=== PATIENT | male | born 1960 | race Caucasian/White ===

== ENCOUNTER 2017-02-03 20:47 | Inpatient (IN) | payer OTHER ==
[~2017-02-03] VITALS: Ht 182.9 cm; Wt 90.8 kg
--- NOTE | ~2017-02-03 | DS ---
PATIENT'S NAME: GALE JAQUEZ [facility] AGE: 56 Y [address] ROOM: [address] [address] LOCATION: [facility] [place] ADMIT DATE: 02/03/2017 Discharge Summary DISCHARGE DATE: 02/05/2017 FAMILY PHYSICIAN: Physician, Unknown ATTENDING PHYSICIAN: Andrea Higgins FINAL/DISCHARGE DIAGNOSES: 1. Right upper quadrant pain. 2. Elevated bilirubin. 3. Accelerated hypertension. 4. Chronic pain, right leg. 5. Microscopic hematuria. HISTORY OF PRESENT ILLNESS: For details of admission, please see the history and physical dictated by Dr. Andrea Higgins. In short, the patient had presented to [facility] with complaints of pain in his right upper quadrant. At that time, he was noted to have an elevated bilirubin, and ultrasound at the outlying facility had shown some question of gallbladder wall thickening. The patient was transferred to [facility] for higher level of care. LABORATORY DATA: On 2nd hospital day, sodium 141, potassium 4, chloride 109, CO2 of 25, BUN 20, creatinine 0.8, total bilirubin 0.7, AST 113, ALT 201, amylase 57, and lipase 189. On the date of discharge, sodium 141, potassium 3.3, BUN 16, creatinine 0.8, total bilirubin 1.2, AST 39, ALT 146, alkaline phosphatase 68, magnesium is 2. On January 05, white blood cell count 10.1, hemoglobin 15.8, hematocrit 45.6, and platelet count 262,000 with a normal differential. Urinalysis on presentation showed 25 leukocytes, 30 protein, and he had 0-2 red blood cells. MICROBIOLOGY DATA: Blood cultures obtained on admission were negative. RADIOLOGY STUDIES: MRCP of the abdomen done on February 04 shows that the common bile duct was not dilated. It was measured at 4 mm. There were no filling defects. There was normal of the common hepatic duct. There was no gallbladder wall thickening. There were stones and sludge within the gallbladder, but no thickening or evidence of inflammation. HOSPITAL COURSE: The patient was from [place] with a presumed diagnosis of acute cholecystitis. He was placed MICU and given IV Levaquin and Flagyl. He was also given aggressive IV hydration. He was seen in evaluation by Dr. Sanchez from the surgery standpoint. Due to the symptoms and the elevated bilirubin, an MRCP was obtained, the results of which were given. After that, returned without any evidence of gallbladder wall thickening or common bile duct stone. It was felt that the patient could be PATIENT'S NAME: GALE JAQUEZ [facility] AGE: 56 Y [address] ROOM: [place] [address] LOCATION: [facility] [place] ADMIT DATE: 02/03/2017 Discharge Summary DISCHARGE DATE: 02/05/2017 FAMILY PHYSICIAN: Physician, Unknown ATTENDING PHYSICIAN: Andrea Higgins started on a diet. He was started on clear liquids and then advanced to a regular diet. On the morning of discharge, he was able to eat a Pashto toast and morales without any nausea, vomiting, or increase in his pain symptoms. It was felt because his lab values were improved and that he was able to eat without worsening symptomatology, but this was probably not acute cholecystitis and that he did not need any surgical intervention. On admission, his blood pressures were elevated. He did receive IV hydralazine for elevated blood pressures. His blood pressures did improve into the 130s to 150s range prior to discharge. The patient does have a history of chronic right leg pain. He currently works with Dr. Ivan Ojeda in [place]. He is on a pain contract for that and states that he has adequate pain medication at home. The patient is discharged to home. He is going on a low-fat diet. See Dr. Ivan Ojeda in 3 to 5 days. DISCHARGE MEDICATIONS: He will be discharged on Cipro 500 mg twice daily for 7 days. Resume the following chronic medications: 1. Neurontin 300 mg 3 times daily. 2. MS Contin 15 mg twice daily. 3. Zofran 4 mg every 4 hours as needed for nausea and vomiting. 4. Colace 100 mg daily as needed. 5. Oxycodone 5 mg every 4 hours as needed for pain. PROGNOSIS: Overall prognosis at discharge is good. I did speak at length with Dr. Ojeda regarding this discharge. JOHANNE WEINSTEIN MD LAW/modl /[id number] d: 02/05/17 2236 t: 02/06/17 1509, DISCHARGE SUMMARY
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
[~2017-02-03 20:47] MED LIST: AMBIEN5 MG PO; ASPIRIN BUFFER325 MG PO; CELEBREX200 MG PO; COLACE100 MG PO; LOVENOX 4040 MG/0.4 SUB-Q; MIRALAX17 GM PO; NEURONTIN300 MG PO; PRILOSEC20 MG PO; ROXICODONE 5MG (5 MG PO; SENOKOT8.6 MG PO; TYLENOL EXTRA500 MG PO; VALIUM2 MG PO
[2017-02-03] MEDS ORDERED: MS CONTIN15 MG PO (21:53)
[2017-02-03] MEDS ORDERED: ZOFRAN ODT4 MG PO (21:54)
[2017-02-04 05:36] LABS: BASOPHIL % 0.2 %; EOSINOPHIL # 0.1 K/uL (0.0-0.5); EOSINOPHIL % 0.9 %; HEMATOCRIT 45.6 % (37.0-53.0); HEMOGLOBIN 15.8 g/dL (12.0-17.0); IMMATURE GRANULOCYTE % 0.2 %; LYMPHOCYTE # 1.5 K/uL (0.8-4.0); LYMPHOCYTE % 15.1 %; MCH 30.5 pg (27.0-34.0); MCHC 34.6 gm/dL (32.0-36.5); MONOCYTE # 0.8 K/uL (0.0-1.0); MPV 9.5 fl (9.4-12.4); NEUTROPHIL # (ANC) 7.6 K/uL (1.4-9.0); NEUTROPHIL % 75.6 %; NRBC % 0 /100WBC (0-0.00); PLATELET COUNT 262 K/uL (150-450); RBC 5.18 M/uL (4.00-6.00); RDW-CV 13.6 % (11.9-14.6); WBC 10.1 K/uL (4.0-11.0)
[2017-02-04 05:52] LABS: ALBUMIN 3.6 gm/dL (3.5-5.0); ALK PHOS 82 IU/L (33-138); ALT 201 IU/L (12-78); AST 113 IU/L (10-40); BLOOD UREA NITROGEN 20 mg/dL (6-24); CALCIUM 8.8 mg/dL (8.5-10.5); CHLORIDE 109 mMol/L (96-110); CO2 25 mMol/L (22-32); CREATININE 0.8 mg/dL (0.6-1.3); ESTIMATED GFR (MDRD EQUATION) > 60; SODIUM 141 mMol/L (135-145); TOTAL BILIRUBIN 1.7 mg/dL (0.0-1.5); TOTAL PROTEIN 7.8 g/dL (6.0-8.4)
[2017-02-04 12:09] LABS: BILIRUBIN URINE NEGATIVE (NEGATIVE); BLOOD URINE 10 /UL (NEGATIVE); GLUCOSE URINE NEGATIVE (NEGATIVE); KETONE URINE 150 mg/dL (NEGATIVE); LEUKOCYTES URINE 25 /UL (NEGATIVE); NITRITE URINE NEGATIVE (NEGATIVE); PROTEIN URINE 30 mg/dL (NEGATIVE); SPEC GRAVITY URINE 1.025 (1.003-1.035); TURBIDITY URINE CLEAR (CLEAR); UROBILINOGEN URINE 4 mg/dL (NORMAL)
[2017-02-04 12:16] LABS: COLOR URINE AMBER (YELLOW)
[2017-02-04 12:23] LABS: AMORPHOUS URINE 1+ (NEGATIVE); BACTERIA URINE NEGATIVE (NEGATIVE); EPITHELIAL URINE 0-2 #/HPF (NEGATIVE); RBC URINE 0-2 #/HPF (NEGATIVE); WBC URINE 0-2 #/HPF (NEGATIVE)
[2017-02-05 05:45] LABS: ALK PHOS 68 IU/L (33-138); ALT 146 IU/L (12-78); ANION GAP 8.3 (10.0-19.0); AST 79 IU/L (10-40); BLOOD UREA NITROGEN 16 mg/dL (6-24); CALCIUM 8.1 mg/dL (8.5-10.5); CHLORIDE 109 mMol/L (96-110); CO2 27 mMol/L (22-32); CREATININE 0.8 mg/dL (0.6-1.3); ESTIMATED GFR (MDRD EQUATION) > 60; POTASSIUM 3.3 mMol/L (3.7-5.1); SODIUM 141 mMol/L (135-145); TOTAL BILIRUBIN 1.2 mg/dL (0.0-1.5); TOTAL PROTEIN 6.4 g/dL (6.0-8.4)
[2017-02-05] MEDS ORDERED: CIPRO500 MG PO (14:52)
== END 2017-02-05 15:13 | disposition disaster alternative care site (69) | DRG 392 ==
LOC: GMSU 20:47
PROVIDERS: Surgery; ADMIT Family Medicine
DX: R10.11 Right upper quadrant pain (principal); K81.0 Acute cholecystitis; R17 Unspecified jaundice; F11.20 Opioid dependence, uncomplicated; I10 Essential (primary) hypertension; R31.29 Other microscopic hematuria; M79.604 Pain in right leg; K21.9 Gastro-esophageal reflux disease without esophagitis; Z87.891 Personal history of nicotine dependence; R11.2 Nausea with vomiting, unspecified
CPT/HCPCS: C9113; J0360; J1956; J2270; J2405; J7030